=== PATIENT | male | born 1955 | race Caucasian/White ===

== ENCOUNTER 2021-01-22 12:31 | Day surgery (SDC) | payer MEDICARE, SELFPAY ==
[2021-01-22 13:00] VITALS: BP 129/85; PULSE 62; RESP 18; TEMP 36.9; O2SAT 98; BMI 25.8
[2021-01-22] MEDS: CATARACT EYE COMPOUND (10 DROPS/SYRINGE) 3 DROPS EYE-OP (13:08)
[2021-01-22] MEDS: PROPARACAINE 0.5% OPHTH SOL 2 DROPS EYE-OP (13:08)
--- NOTE | 2021-01-22 13:15 | PM.PREOP ---
Pre-operative Note Interval Note History & Physical reviewed/Exam performed by Physician: Yes Changes to H&P: No
--- NOTE | 2021-01-22 13:15 | PM.OP.1 ---
Operative Date/Time/Diagnoses Pre-op diagnosis: Nuclear Cataract Left eye Post-op diagnosis: same Procedure & Clinicians Same procedure as scheduled: Yes Surgeon: Shantanu Lucio Anesthesia Type: MAC +/- and Sedation Operative Notes Procedure in detail: Patient brought to the operating suite. Tetracaine drops placed in the left eye. Patient was prepped and draped in sterile manner. Wire lid speculum was placed in the eye. Betadine drops were placed on the eye. This was irrigated. Lidocaine jelly was placed on the eye. A paracentesis port was created with a side-port blade. 0.1 mL 1% preservative free lidocaine was injected into the anterior chamber. The anterior chamber was deepened with viscoelastic. 2.6 mm keratome was used to create a temporal clear corneal incision. Cystotome and Utrata forceps were used to create continuous tear capsulorrhexis. Balanced salt solution was used to hydro dissect the nucleus. The phacoemulsification handpiece was inserted and the nucleus was removed using the stop and chop technique. The irrigation aspiration handpiece was inserted and the remaining cortex was removed. Anterior chamber was deepened with viscoelastic. An Hercules DIB00 intraocular lens with a power of 26.5 was injected into the capsular bag. Irrigation aspiration handpiece was inserted and the remaining viscoelastic was removed. Incision was hydrated with balanced salt solution and found to be leak free with pressure with Weck-Carolyn sponges. 0.1 mL Vigamox injected anterior chamber. 0.3 mL Kenalog 10 mg was injected subconjunctivally. Lid speculum was removed. The patient left the operating room in excellent condition. Complications: none Post-operative Condition: stable Disposition: same day surgery
[2021-01-22] MEDS: LIDOCAINE 2% (GLYDO) 6 ML GEL TOP (13:28)
[2021-01-22] MEDS: HYALURONATE SODIUM 30 MG-10 MG/ML SYRINGES 1 BOX INTRAOCULA (13:28)
[2021-01-22] MEDS: TETRACAINE 0.5% OPHTH DROPS 4 ML 2 DROPS EYE-OP (13:28)
[2021-01-22] MEDS: PHENYLEPHRINE/LIDOCAINE VIAL (OR) 0.2 ML EYE-OP (13:28)
[2021-01-22] MEDS: TRIAMCINOLONE 50 MG/5 ML VIAL INJ (13:29)
[2021-01-22] MEDS: BALANCED SALT IRRIG SOLN NO.2 500 ML, EPINEPHrine 1 MG IRR (13:29)
[2021-01-22] MEDS: MOXIFLOXACIN INJ 4 MG/0.8 ML VIAL 0.5 MG EYE-OP (13:29)
[2021-01-22 13:56] VITALS: BP 129/85; PULSE 62; RESP 16; TEMP 36.9; O2SAT 98
== END 2021-01-22 13:58 | disposition home or self-care (01) ==
PROVIDERS: PCP Family Medicine; Referring Provider Ophthalmology; Visit Provider Ophthalmology
PROC: (CPT 66984; principal; 2021-01-22 12:15)
DX: H25.12 Age-related nuclear cataract, left eye (principal); F41.9 Anxiety disorder, unspecified; I10 Essential (primary) hypertension
CPT/HCPCS: 66984; J0171; J2250; J3301

== ENCOUNTER → 2021-01-30 12:55 | Outpatient (CLI) | payer MEDICARE, SELFPAY ==
--- NOTE | 2021-01-30 16:09 | PC.NURSE ---
Set up to place a PICC line in patient. Explained procedure, collected consent, answered questions. Procedure was in Fluoroscopy room. I was unable to locate the cephalic and the basilic veins, I could however visualize and attempted twice at the brachial veins without definite success. When I advanced the wire the patient didn't tolerate it and I did not want to injure the artery. He was very anxious and after the second attempt the patient decided it was enough so we ended the procedure without placement. I placed a 2x2 with steri strips over the injection sites. I talked to the patient about anti anxiety medication that is available and suggested he talk to his provider to see if that will help him with future procedures. He is scheduled for radiation therapy and a Port-a-Cath placement near the end of the month.
== END ==
PROVIDERS: PCP Family Medicine; Referring Provider Internal Medicine; Visit Provider Internal Medicine
DX: Z01.818 Encounter for other preprocedural examination (principal); Z53.8 Procedure and treatment not carried out for other reasons

== ENCOUNTER → 2021-02-05 08:33 | Day surgery (SDC) | payer MEDICARE, SELFPAY ==
[2021-02-05 09:58] VITALS: BP 140/77; PULSE 63; RESP 18; TEMP 36.8; O2SAT 98; BMI 25.0
[2021-02-05] MEDS: PROPARACAINE 0.5% OPHTH SOL 2 DROPS EYE-OP (10:04)
[2021-02-05] MEDS: CATARACT EYE COMPOUND (10 DROPS/SYRINGE) 3 DROPS EYE-OP ×3 (10:05→10:16)
--- NOTE | 2021-02-05 10:52 | PM.PREOP ---
Pre-operative Note Interval Note History & Physical reviewed/Exam performed by Physician: Yes Changes to H&P: No
--- NOTE | 2021-02-05 10:52 | PM.OP.1 ---
Operative Date/Time/Diagnoses Pre-op diagnosis: Nuclear cataract right eye Procedure & Clinicians Procedure: Cataract Surgery Same procedure as scheduled: Yes Surgeon: Shantanu Lucio Anesthesia Type: MAC +/- and Sedation Operative Notes Procedure in detail: Patient brought to the operating suite. Tetracaine drops placed in the right eye. Patient was prepped and draped in sterile manner. Wire lid speculum was placed in the eye. Betadine drops were placed on the eye. This was irrigated. Lidocaine jelly was placed on the eye. A paracentesis port was created with a side-port blade. 0.1 mL 1% preservative free lidocaine was injected into the anterior chamber. The anterior chamber was deepened with viscoelastic. 2.6 mm keratome was used to create a temporal clear corneal incision. Cystotome and Utrata forceps were used to create continuous tear capsulorrhexis. Balanced salt solution was used to hydro dissect the nucleus. The phacoemulsification handpiece was inserted and the nucleus was removed using the stop and chop technique. The irrigation aspiration handpiece was inserted and the remaining cortex was removed. Anterior chamber was deepened with viscoelastic. An Hercules DIB00 intraocular lens with a power of 26.0 was injected into the capsular bag. Irrigation aspiration handpiece was inserted and the remaining viscoelastic was removed. Incision was hydrated with balanced salt solution and found to be leak free with pressure with Weck-Carolyn sponges. 0.1 mL Vigamox injected anterior chamber. 0.3 mL Kenalog 10 mg was injected subconjunctivally. Lid speculum was removed. The patient left the operating room in excellent condition. Complications: none Post-operative Condition: stable Disposition: same day surgery
[2021-02-05] MEDS: HYALURONATE SODIUM 30 MG-10 MG/ML SYRINGES 1 BOX INTRAOCULA (11:10)
[2021-02-05] MEDS: TETRACAINE 0.5% OPHTH DROPS 4 ML 2 DROPS EYE-OP (11:10)
[2021-02-05] MEDS: PHENYLEPHRINE/LIDOCAINE VIAL (OR) 0.2 ML EYE-OP (11:10)
[2021-02-05] MEDS: MOXIFLOXACIN INJ 4 MG/0.8 ML VIAL 0.5 MG EYE-OP (11:10)
[2021-02-05] MEDS: LIDOCAINE 2% (GLYDO) 6 ML GEL TOP (11:10)
[2021-02-05] MEDS: TRIAMCINOLONE 50 MG/5 ML VIAL INJ (11:11)
[2021-02-05] MEDS: BALANCED SALT IRRIG SOLN NO.2 500 ML, EPINEPHrine 1 MG IRR (11:11)
[2021-02-05 11:31] VITALS: BP 126/81; PULSE 57; RESP 12; TEMP 36.6; O2SAT 98
== END | disposition home or self-care (01) ==
PROVIDERS: PCP Family Medicine; Referring Provider Ophthalmology; Visit Provider Ophthalmology
PROC: (CPT 66984; principal; 2021-02-05 11:15)
DX: H25.11 Age-related nuclear cataract, right eye (principal); F41.9 Anxiety disorder, unspecified
CPT/HCPCS: 66984; J0171; J2250; J3301